=== PATIENT | male | born 2000 | race Asian ===

== ENCOUNTER 2021-12-06 08:41 | Inpatient (IN) | payer OTHER ==
[~2021-12-06] VITALS: Ht 175.3 cm; Wt 81.6 kg
[2021-12-06 11:01] LABS: HEMATOCRIT 45.9 % (42.0-52.0); HEMOGLOBIN 14.8 g/dl (13.5-17.5); MEAN CORPUSCULAR HEMOGLOBIN 29.4 pg (27.0-33.0); MEAN CORPUSCULAR HGB CONC 32.2 g/dl (32.0-36.5); MEAN CORPUSCULAR VOLUME 91.3 fl (80.0-96.0); PLATELET COUNT, AUTOMATED 193 10^3/uL (150-450); RED BLOOD COUNT 5.03 10^6/uL (4.30-6.10); WHITE BLOOD COUNT 5.9 10^3/uL (4.0-10.0)
[2021-12-06 11:20] LABS: RSV AMPLIFICATION NEGATIVE (NEGATIVE)
[2021-12-06 11:25] LABS: AMPHETAMINES LEVEL URINE NEGATIVE (NEGATIVE); BARBITURATES URINE NEGATIVE (NEGATIVE); BENZODIAZEPINES URINE NEGATIVE (NEGATIVE); CANNABINOIDS URINE NEGATIVE (NEGATIVE); COCAINE METABOLITE URINE NEGATIVE (NEGATIVE); METHADONE URINE NEGATIVE (NEGATIVE); OPIATES URINE NEGATIVE (NEGATIVE); PHENCYCLIDINE URINE NEGATIVE (NEGATIVE)
[2021-12-06 11:46] LABS: ACETAMINOPHEN LEVEL < 2.0 UG/ML (10.0-30.0); ALBUMIN 4.1 GM/DL (3.2-5.2); ALT/SGPT 51 U/L (12-78); BILIRUBIN,DIRECT 0.2 MG/DL (0.0-0.2); BILIRUBIN,TOTAL 0.7 MG/DL (0.2-1.0); BLOOD UREA NITROGEN 17 MG/DL (7-18); CALCIUM LEVEL 9.6 MG/DL (8.5-10.1); CARBON DIOXIDE LEVEL 29 MEQ/L (21-32); CHLORIDE LEVEL 107 MEQ/L (98-107); CREATININE FOR GFR 1.02 MG/DL (0.70-1.30); ETHYL ALCOHOL (ETHANOL) < 0.003 % (0.000-0.010); GLOMERULAR FILTRATION RATE > 60.0 (>60); GLUCOSE, FASTING 94 MG/DL (70-100); POTASSIUM SERUM 4.9 MEQ/L (3.5-5.1); SALICYLATE LEVEL < 1.7 MG/DL (5.0-30.0); SODIUM LEVEL 139 MEQ/L (136-145); THYROID STIMULATING HORMONE 0.821 uIU/ML (0.358-3.740); TOTAL PROTEIN 7.9 GM/DL (6.4-8.2)
[2021-12-06] MEDS ORDERED: NICOTINE 21MG/24HR 1 EA TRANSDERMAL TD PRN (17:50)
[2021-12-06] MEDS ORDERED: ACETAMINOPHEN TAB 650MG DOSE (2X325MG) PO PRN (17:50)
[2021-12-06] MEDS ORDERED: MAALOX 30 ML SUSP *UDC PO PRN (17:50)
[2021-12-06] MEDS ORDERED: OLANZapine ORAL DISINTEGRATING TAB 5MG PO PRN (17:50)
[2021-12-06] MEDS ORDERED: MOM 30ML SUSPENSION UDC PO PRN (17:50)
[2021-12-06] MEDS ORDERED: HOME MED LIST COMPLETE! XX SCH (18:10)
[2021-12-06 22:19] VITALS: BP 135/73
[2021-12-06] MEDS: PALIPERIDONE 3 MG ER TAB (INVEGA) PO SCH (23:41)
[2021-12-06] MEDS: traZODone 50 MG TAB PO PRN (23:41)
[2021-12-07 06:20] VITALS: BP 133/78
[2021-12-07] MEDS ORDERED: SERTRALINE HCL 25 MG TABLET PO SCH (09:00)
[2021-12-07] MEDS: PALIPERIDONE 3 MG ER TAB (INVEGA) PO SCH ×2 (09:28→21:45)
[2021-12-07 18:19] VITALS: BP 135/65
[2021-12-07] MEDS: traZODone 50 MG TAB PO PRN (21:45)
[2021-12-08 06:15] VITALS: BP 144/66
[2021-12-08] MEDS: PALIPERIDONE 3 MG ER TAB (INVEGA) PO SCH (09:17)
[2021-12-08] MEDS: SERTRALINE HCL 50 MG TAB PO SCH (09:17)
[2021-12-08 11:53] VITALS: BP 125/60
[2021-12-08 18:20] VITALS: BP 119/59
[2021-12-08] MEDS ORDERED: traZODone 25MG PER 1/2 TABLET PO SCH (21:00)
[2021-12-09 06:46] VITALS: BP 133/62
[2021-12-09] MEDS: SERTRALINE HCL 50 MG TAB PO SCH (08:57)
[2021-12-09] MEDS ORDERED: TRAZ-252 PO (10:22)
[2021-12-09] MEDS ORDERED: PALI1TAB2 PO (10:22)
[2021-12-09] MEDS ORDERED: SERT50TA29 PO (10:22)
[2021-12-09] MEDS ORDERED: PALIPERIDONE 3 MG ER TAB (INVEGA) PO SCH (21:00)
== END 2021-12-09 14:30 | DRG 885 ==
LOC: M ED 08:41 → M ED INP 17:50 → M PSY 22:13
PROVIDERS: ADMIT Psychiatry & Neurology Psychiatry; ATTEND Psychiatry & Neurology Psychiatry
DX: F32.3 Major depressive disorder, single episode, severe with psychotic features (principal); G47.00 Insomnia, unspecified; F41.9 Anxiety disorder, unspecified; Z91.411 Personal history of adult psychological abuse; Z91.82 Personal history of military deployment; Z56.6 Other physical and mental strain related to work

== ENCOUNTER 2021-12-10 10:00 | Emergency (ER) | payer OTHER ==
[~2021-12-10] VITALS: Ht 175.3 cm; Wt 80.3 kg
[~2021-12-10 10:00] MED LIST: PALI1TAB2 PO; SERT50TA29 PO; TRAZ-252 PO
[2021-12-10 15:05] LABS: HEMATOCRIT 43.6 % (42.0-52.0); HEMOGLOBIN 14.5 g/dl (13.5-17.5); MEAN CORPUSCULAR HEMOGLOBIN 30.1 pg (27.0-33.0); MEAN CORPUSCULAR HGB CONC 33.3 g/dl (32.0-36.5); MEAN CORPUSCULAR VOLUME 90.5 fl (80.0-96.0); PLATELET COUNT, AUTOMATED 172 10^3/uL (150-450); RED BLOOD COUNT 4.82 10^6/uL (4.30-6.10); WHITE BLOOD COUNT 7.1 10^3/uL (4.0-10.0)
[2021-12-10 15:48] LABS: AMPHETAMINES LEVEL URINE NEGATIVE (NEGATIVE); BARBITURATES URINE NEGATIVE (NEGATIVE); BENZODIAZEPINES URINE NEGATIVE (NEGATIVE); CANNABINOIDS URINE NEGATIVE (NEGATIVE); COCAINE METABOLITE URINE NEGATIVE (NEGATIVE); METHADONE URINE NEGATIVE (NEGATIVE); OPIATES URINE NEGATIVE (NEGATIVE); PHENCYCLIDINE URINE NEGATIVE (NEGATIVE)
[2021-12-10 15:59] LABS: ACETAMINOPHEN LEVEL < 2.0 UG/ML (10.0-30.0); ALT/SGPT 29 U/L (12-78); BILIRUBIN,DIRECT 0.2 MG/DL (0.0-0.2); BILIRUBIN,TOTAL 0.6 MG/DL (0.2-1.0); BLOOD UREA NITROGEN 16 MG/DL (7-18); CALCIUM LEVEL 9.4 MG/DL (8.5-10.1); CARBON DIOXIDE LEVEL 26 MEQ/L (21-32); CHLORIDE LEVEL 106 MEQ/L (98-107); CREATININE FOR GFR 0.96 MG/DL (0.70-1.30); ETHYL ALCOHOL (ETHANOL) < 0.003 % (0.000-0.010); GLOMERULAR FILTRATION RATE > 60.0 (>60); GLUCOSE, FASTING 90 MG/DL (70-100); POTASSIUM SERUM 3.7 MEQ/L (3.5-5.1); SALICYLATE LEVEL < 1.7 MG/DL (5.0-30.0); SODIUM LEVEL 139 MEQ/L (136-145); THYROID STIMULATING HORMONE 0.748 uIU/ML (0.358-3.740); TOTAL PROTEIN 7.9 GM/DL (6.4-8.2)
[2021-12-10 16:28] LABS: HCG, SERUM QUALITATIVE NEGATIVE
[2021-12-10 18:31] LABS: RSV AMPLIFICATION NEGATIVE (NEGATIVE)
[2021-12-11 00:53] VITALS: BP 134/79
[2021-12-11] MEDS ORDERED: SERT50TA29 PO (01:08)
[2021-12-11] MEDS ORDERED: PALI1TAB2 PO (01:08)
[2021-12-11] MEDS ORDERED: TRAZ-252 PO (01:08)
[2021-12-11] MEDS ORDERED: PALIPERIDONE 3 MG ER TAB (INVEGA) PO STA (01:10)
== END 2021-12-11 02:13 | disposition home or self-care (01) ==
LOC: M ED 10:00
DX: F33.3 Major depressive disorder, recurrent, severe with psychotic symptoms (principal); F41.9 Anxiety disorder, unspecified; G47.00 Insomnia, unspecified; Z79.899 Other long term (current) drug therapy